=== PATIENT | female | born 1945 | race Hispanic/Latino ===

== ENCOUNTER 2018-08-16 11:52 | Inpatient (IN) | payer MEDICARE ==
[~2018-08-16] VITALS: Ht 157.5 cm; Wt 60.3 kg
--- NOTE | 2018-08-16 14:20 | Diagnostic Imaging Report ---
EXAMINATION: CT of the abdomen and pelvis without contrast. TECHNIQUE: Spiral CT images of the abdomen and pelvis were performed from the lung bases to the lesser trochanters. No intravenous contrast was given per referring physician request. Oral Gastrografin was administered. Coronal and sagittal reformatted images were obtained. COMPARISON: None. CLINICAL HISTORY:Right lower quadrant pain and fever x2 days DISCUSSION: ABSENCE OF INTRAVENOUS CONTRAST DECREASES SENSITIVITY FOR DETECTION OF FOCAL LESIONS AND VASCULAR PATHOLOGY. ABDOMEN/PELVIS: LOWER THORAX: Minimal groundglass opacity in the dependent lower lobes compatible with subsegmental atelectasis. HEPATOBILIARY:No focal hepatic lesion or intrahepatic biliary ductal dilatation. There are multiple radiopaque calculi in the dependent portion of the gallbladder, as well as within the gallbladder neck (series 2 image 29 and series 301 image 42) without pericholecystic inflammation. SPLEEN: No splenomegaly. PANCREAS: No focal masses or ductal dilatation. ADRENALS: No adrenal nodules. KIDNEYS/URETERS: No hydronephrosis, stones, or solid mass lesions. PELVIC ORGANS/BLADDER: Evaluation is limited due to beam hardening artifact from right femoral surgical hardware. The bladder is grossly unremarkable. The uterus is neutral in position with arcuate artery calcifications. No adnexal mass. PERITONEUM/RETROPERITONEUM: No ascites. No pneumoperitoneum. LYMPH NODES: No intra-abdominal,retroperitoneal, pelvic or inguinal lymphadenopathy. VESSELS: Limited evaluation without intravenous contrast. The abdominal aorta is nonaneurysmal. Atherosclerotic calcification of the abdominopelvic arterial system. GI TRACT: The large bowel shows no distention or wall thickening. Gas and fecal material is noted throughout. The appendix is normal. The stomach is collapsed with prominence of the rugal folds. No small bowel dilatation to suggest obstruction. BONES AND SOFT TISSUES: Surgical hardware in the proximal right femur. No osseous destructive lesions. 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 No focal soft tissue abnormalities. IMPRESSION: No acute intra-abdominal or pelvic CT abnormalities. Cholelithiasis without CT findings of acute cholecystitis. Atherosclerotic vascular disease. Signed by: Dr. Lauri Gallardo M.D. on 08/16/2018 2:17 PM
--- NOTE | 2018-08-16 14:51 | NUR ---
US TECH CALLED ETA 45 MINUTES
[2018-08-16] MEDS ORDERED: ONDANSETRON HCL INJ 2MG/ML 2ML 2 MG/ML VIAL IV STA (15:01)
[2018-08-16] MEDS ORDERED: MORPHINE SULFATE 2 MG/ML SYR 1ML IV STA (15:01)
--- NOTE | 2018-08-16 16:51 | Diagnostic Imaging Report ---
EXAM: US GALL BLADDER-HOPD DATE: 08/16/2018 12:00 AM INDICATION: Right upper quadrant pain COMPARISON: CT abdomen and pelvis same day TECHNIQUE: Transverse and longitudinal aquino scale and color doppler sonographic images of the upper abdomen were obtained. FINDINGS: LIVER 12.9 cm in the right midclavicular line. Normal echogenicity, normal contour, no masses. GALLBLADDER Multiple mobile shadowing echogenic calculi. No wall thickening or pericholecystic fluid. Negative sonographic Fields's sign. BILE DUCTS No intra nor extra-hepatic biliary dilation. Common bile duct is mildly prominent, measuring 0.9 cm PANCREAS: Visualized portions are normal. RIGHT KIDNEY: 9.7 cm Echogenicity: Normal Collecting System: No hydronephrosis Stones: None Cyst/Mass: None VESSELS: Aorta: Nonaneurysmal Inferior Vena Cava: Patent Main Portal Vein: 0.9 cm, normal size with hepatopetal flow. FREE FLUID: None IMPRESSION: Cholelithiasis without sonographic evidence of acute cholecystitis. Mild prominence of the common bile duct may be age-related. Correlate with serum bilirubin and consider outpatient MRCP for further evaluation if warranted. Signed by: Dr. Lauri Gallardo M.D. on 08/16/2018 4:48 PM
[2018-08-16] MEDS ORDERED: MORPHINE SULFATE 2 MG/ML SYR 1ML IV PRN (18:00)
[2018-08-16] MEDS ORDERED: ONDANSETRON HCL INJ 2MG/ML 2ML 2 MG/ML VIAL IV PRN (18:00)
--- OUTSIDE RECORDS SUMMARY | 2018-08-16 18:04 | XMS REPORT ---
Author Author [facility] Address Unknown Phone Unavailable Care Team Providers Care Employment Law Attorney Name Role Phone Manfred GREGORY Unavailable Unavailable Problems This patient has no known problems. Allergies, Adverse Reactions, Alerts This patient has no known allergies or adverse reactions. Medications This patient has no known medications. Results Test Description Test Time Test Comments Text Results Atomic Results Result Comments GALL BLADDER-HOPD 2018-08-16 16:44:00 [place] [address] Patient Name: JOSE LOPEZ MR #: [id number] : 1945 Age/Sex: 73/F Req #: [id number] Adm Physician: Ordered by: NEEMA GREGORY MD Report #: [id number] Location: [facility] Room/Bed: Procedure: [id number] [facility] G[facility] Exam Date: 08/16/18 Exam Time: 1550 REPORT STATUS: Signed EXAM: GALL BLADDER-HOPD DATE: 08/16/2018 12:00 AM INDICATION: Right upper quadrant pain COMPARISON: CT abdomen and pelvis same day TECHNIQUE: Transverse and longitudinal aquino scale and color doppler sonographic images of the upper abdomen were obtained. FINDINGS: LIVER 12.9 cm in the right midclavicular line. Normal echogenicity, normal contour, no masses. GALLBLADDER Multiple mobile shadowing echogenic c alculi. No wall thickening or pericholecystic fluid. Negative sonographic Fields's sign. BILE DUCTS No intra nor extra-hepatic biliary dilation. Common bile duct is mildly prominent, measuring 0.9 cm PANCREAS: Visualized portions are normal. RIGHT KIDNEY: 9.7 cm Echogenicity: Normal Collecting System: No hydronephrosis Stones: None Cyst/Mass: None VESSELS: Aorta: Nonaneurysmal Inferior Vena Cava: Patent Main Portal Vein: 0.9 cm, normal size with hepatopetal flow. FREE FLUID: None IMPRESSION: Cholelithiasis without sonographic evidence of acute cholecystitis. Mild prominence of the common bile duct may be age-related. Correlate with serum bilirubin and consider outpatient MRCP for further evaluation if warranted. Signed by: Dr. Keaton Carbajal M.D. on 08/16/2018 4:48 PM Dictated By: KEATON CARBAJAL MD 47 Transcribed By: RAPHAEL on 08/16/181647 COPY TO: NEEMA GREGORY MD CT ABDOMEN WITHOUT-HOPD 2018-08-16 14:07:00 [place] [address] Patient Name: JOSE LOPEZ MR #: [id number] : 1945 Age/Sex: 73/F Req #: [id number] Adm Physician: Ordered by: NEEMA GREGORY MD Report #: [id number] Location: [facility] Room/Bed: Procedure: [id number] HOPD/CT ABDOMEN WITHOUT-HOPD Exam Date: 08/16/18 Exam Time: 1340 REPORT STATUS: Signed EXAMINATION: CT of the abdomen and pelvis without contrast. TECHNIQUE: Spiral CT images of the abdomen and pelvis were performed from the lung bases to the lesser trochanters. No intravenous contrast was given per referring physician request. Oral Gastrografin was administered. Coronal and sagittal reformatted images were obtained. COMPARISON: None. CLINICAL HISTORY:Right lower quadrant pain and fever x2 days DISCUSSION: ABSENCE OF INTRAVENOUS CONTRAST DECREASES SENSITIVITY FOR DETECTION OF FOCAL LESIONS AND VASCULAR PATHOLOGY. ABDOMEN/PELVIS: LOWER THORAX: Minimal groundglass opacity in the dependent lower lobes compatible with subsegmental atelectasis. HEPATOBILIARY:No focal hepatic lesion or intrahepatic biliary ductal dilatation. There are multiple radiopaque calculi in the dependent portion of the gallbladder, as well as within the gallbladder neck (series 2 image 29 and series 301 image 42) without pericholecystic inflammation. SPLEEN: No splenomegaly. PANCREAS: No focal masses or ductal dilatation. ADRENALS: No adrenal nodules. KIDNEYS/URETERS: No hydronephrosis, stones, or solid mass lesions. PELVIC ORGANS/BLADDER: Evaluation is limited due to beam hardening artifact from right femoral surgical hardware. The bladder is grossly unremarkable. The uterus is neutral in position with arcuate artery calcifications. No adnexal mass. PERITONEUM/RETROPERITONEUM: No ascites. No pneumoperitoneum. LYMPH NODES: No intra-abdominal,retroperitoneal, pelvic or inguinal lymphadenopathy. VESSELS: Limited evaluation without intravenous contrast. The abdominal aorta is nonaneurysmal. Atherosclerotic calcification of the abdominopelvic arterial system. GI TRACT: The large bowel shows no distention or wall thickening. Gas and fecal material is noted throughout. The appendix is normal. The stomach is collapsed with prominence of the rugal folds. No small bowel dilatation to suggest obstruction. BONES AND SOFT TISSUES: Surgical hardware in the proximal right femur. No osseous destructive lesions. 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 No focal soft tissue abnormalities. IMPRESSION: No acute intra-abdominal or pelvic CT abnormalities. Cholelithiasis without CT findings of acute cholecystitis. Atherosclerotic vascular disease. Signed by: Dr. Keaton Carbajal M.D. on 08/16/2018 2:17 PM Dictated By: KEATON CARBAJAL MD [id number] Transcribed By: RAPHAEL on 08/16/18 1417 COPY TO: NEEMA GREGORY MD
--- NOTE | 2018-08-16 18:07 | NUR ---
[facility] CALLED ETA 45 MINUTES
[2018-08-16] MEDS: PIPER-TAZ 3.375 GM / NS 50ML IV SCH ×2 (18:27→22:00)
--- NOTE | 2018-08-16 18:33 | NUR ---
REPORT CALLED TO [facility] KUMAR ALL QUESTIONS ANSWERED
--- NOTE | 2018-08-16 19:20 | NUR ---
Patient arrived to unit per ems from [facility] with daughter at side. Transferred to bed. Oriented to room and environment. Instructed to call for assistance or on the onset of pain or SOB. Call light within reach.
[2018-08-16] MEDS ORDERED: GLYBURIDE5 MG PO (19:46)
[2018-08-16] MEDS ORDERED: METFORMIN HCL500 MG PO (19:46)
[2018-08-16] MEDS ORDERED: insulin SUBD (19:46)
[2018-08-16 19:47] VITALS: BP 134/60
[2018-08-16 20:00] VITALS: BP 134/60
--- NOTE | 2018-08-16 20:00 | NUR ---
Patient requesting water or ice chips. Informed patient that current order for NPO, will call MD to check. Verbalized understanding.
[2018-08-16 20:09] VITALS: BP 167/73
[2018-08-16 20:14] VITALS: BP 134/60
[2018-08-16] MEDS ORDERED: ACETAMINOPHEN 325 MG TAB PO PRN (20:30)
--- NOTE | 2018-08-16 20:30 | NUR ---
Daughter Chika to bring home medications for correct dosage on medications and type of insulin. Education provided on importance of correct list of home medications. Will bring list.
--- NOTE | 2018-08-16 20:33 | NUR ---
Spoke with Dr Herron via phone. Patient temp 101.4 orally, no order for tylenol. New order for Tylenol 650 mg po Q 6 hrs PRN temp or pain. Patient also requesting water or ice chips: keep patient NPO at this time.
[2018-08-16] MEDS: SODIUM CHLORIDE 0.9% 1000ML 1,000 ML IV SCH (20:59)
[2018-08-16 23:54] VITALS: BP 97/55
[2018-08-17] VITALS (8 sets, daily range): BP systolic 96–115; BP diastolic 47–57
[2018-08-17] MEDS ORDERED: MORPHINE SULFATE INJ 4 MG/ML INJ 1ML IV PRN ×2 (01:30→08:45)
[2018-08-17] MEDS: PIPER-TAZ 3.375 GM / NS 50ML IV SCH ×3 (01:34→17:30)
[2018-08-17] MEDS: SODIUM CHLORIDE 0.9% 1000ML 1,000 ML IV SCH ×4 (01:34→20:57)
[2018-08-17 05:26] LABS: BASOPHILS # (AUTO) 0.1 (0.0-0.1); BASOPHILS % 0.6 % (0.0-1.0); EOSINOPHILS # (AUTO) 0.3 (0.0-0.4); EOSINOPHILS % 2.3 % (0.0-6.0); HEMATOCRIT 27.1 % (34.2-44.1); HEMOGLOBIN 8.9 g/dL (12.0-16.0); LYMPHOCYTES # (AUTO) 1.2 (1.0-3.2); MEAN CORPUSCULAR HEMOGLOBIN 30.6 pg (28-32); MEAN CORPUSCULAR HGB CONC 32.8 g/dL (31-35); MEAN CORPUSCULAR VOLUME 93.1 fL (81-99); MONOCYTES # (AUTO) 1.2 (0.2-0.8); MONOCYTES % 9.6 % (4.4-11.3); NEUTROPHILS # (AUTO) 9.2 (2.1-6.9); PLATELET COUNT 202 x10e3/uL (140-360); RED BLOOD COUNT 2.91 x10e6/uL (3.6-5.1); RED CELL DISTRIBUTION WIDTH 12.7 % (11.7-14.4)
[2018-08-17 05:58] LABS: ALBUMIN 2.5 g/dL (3.5-5.0); ALBUMIN/GLOBULIN RATIO 0.8 (0.8-2.0); ANION GAP 11.1 mmol/L (8-16); CALCIUM 8.3 mg/dL (8.4-10.2); CREATININE, SERUM 1.47 mg/dL (0.57-1.11); POTASSIUM 4.1 mmol/L (3.5-5.1)
[2018-08-17] MEDS ORDERED: DEXTROSE 50% SYRINGE 50 ML IV PRN (08:45)
[2018-08-17] MEDS ORDERED: HYDRALAZINE HCL 20 MG/ML VIAL IV PRN (08:45)
[2018-08-17] MEDS ORDERED: ACETAMINOPHEN 1000 MG/100 ML IV PRN (08:45)
--- NOTE | 2018-08-17 10:33 | NUR ---
Received report. Patient is being transferred to room 202
--- NOTE | 2018-08-17 10:37 | NUR ---
patient back from MRI MRCP, Stable, transferred to [facility], not in any distress
--- NOTE | 2018-08-17 10:38 | NUR ---
Patient arrived to the floor via wheelchair. She is being transferred from room 175. She is awake alert and oriented x3. Not in any distress. She has several family members present in the room. Swazi speaking only. Salt Washer was used to orient patient and family to the room and NPO status after midnight and procedure tomorrow. Patient and family verbalized understanding. They deny needing anything at this time, call light in reach
--- NOTE | 2018-08-17 10:41 | NUR ---
UNABLE TO SPEAK WITH PT, THE PT AND HER ASKED FOR ME TO CALL DAUGHTER [phone]
[2018-08-17] MEDS: INSULIN LISPRO 100 UNIT/1 ML 3ML VIAL SQ SCH ×3 (12:25→21:00)
--- NOTE | 2018-08-17 13:25 | Consultation ---
DATE OF CONSULTATION: 08/17/2018 ADDITIONAL REFERRING PHYSICIAN: Dr. Jorgito Marte. HISTORY OF PRESENT ILLNESS: The patient is a 73-year-old female presenting with complaints of right upper quadrant abdominal pain. Says the pain started about three days ago, but was somewhat less now. She says the pain radiated to her back. She had no associated nausea or vomiting. She had some diarrhea and also some fever. Evaluation in the emergency room revealed gallstones, but no inflammation around the gallbladder on CT or ultrasound. The patient says she has had similar symptoms previously. There are no symptoms of jaundice. Evaluation in the emergency room did reveal gallstones. PAST MEDICAL HISTORY: Significant for diabetes. PAST SURGICAL HISTORY: The only previous surgery is foot surgery. ALLERGIES: SHE HAS NO KNOWN ALLERGIES. MEDICATIONS: At home; glyburide, metformin, and insulin. FAMILY HISTORY: Noncontributory. SOCIAL HISTORY: The patient does not smoke cigarettes. Does not drink alcohol. REVIEW OF SYSTEMS: As stated above, otherwise was negative. PHYSICAL EXAMINATION: GENERAL: The patient is awake, alert, in no distress. VITAL SIGNS: Revealed temperature 101.4 last evening. She is afebrile now. Heart rate is normal. Blood pressure is normal. HEENT: There was no scleral icterus. NECK: No masses. LUNGS: Equal breath sounds, clear bilaterally. CARDIAC: Regular rate and rhythm with no murmur. ABDOMEN: Tender in the right upper quadrant. There was no mass. There was no organomegaly. There were no signs of peritonitis. EXTREMITIES: Have no edema. NEUROLOGIC: Grossly intact. LABS: White blood cell count is 12,000, hemoglobin 8.9, and hematocrit 27. Chemistries revealed mildly elevated BUN and creatinine of 34 and 1.47. The bilirubin was 1.1. Other liver function tests were normal. ASSESSMENT: A 73-year-old female with right upper quadrant abdominal pain radiating to her back with fever and findings of gallstones on imaging studies, likely this is due to cholecystitis. She is to be evaluated further with MRCP, which will likely benefit from cholecystectomy. This was explained to the patient and the proposed surgery was explained to the patient. Thank you for asking me to see Ms. Chanel. MD DREW Rowell/BEKA /[id number]
--- NOTE | 2018-08-17 14:23 | Diagnostic Imaging Report ---
MRCP CPT code: 72901 History: Abdominal pain, right upper quadrant pain Comparison: None. Technique: Multiplanar, multisequence images of the abdomen were obtained per MRCP protocol. 3D volume rendered reformation images of the biliary tree were performed. No intravenous gadolinium was administered. Findings: Multiple images are motion degraded. Biliary tree: The intrahepatic ducts are distended, particularly in the left lobe without beading or narrowing. The proximal most portion of the right common hepatic duct is mildly distended. The common hepatic duct measures approximately 6 mm in diameter. The cystic duct is poorly visualized. The proximal common bile duct measures 10 mm. The mid common bile duct measures 8 mm. The distal common bile duct measures 7 mm with squaring of the shoulders at the ampulla. There are no intraluminal filling defects. Pancreas duct: The proximal pancreas duct in the head measures 4 mm. The pancreas duct in the body and tail are not dilated. Gallbladder: Present and is very well-distended. A dependently layering gallstone measures 7 mm. No gallbladder wall thickening. There is a trace amount of nonspecific pericholecystic fluid. No edema of the adjacent hepatic parenchyma. Liver: No discrete mass. Decreased signal on opposed phase sequence suggestive of steatosis. Spleen: Normal size and signal. No mass. Pancreas: Normal T2 signal. No mass. Kidneys: No hydronephrosis. No discrete mass. Adrenal glands: No mass Lymph nodes: No lymphadenopathy. There is focal increased T2 signal to the left of the infrarenal aorta measuring 15 x 7 mm. This may be a part of the parasympathetic ganglion. No defined lymph nodes. Bowel: Stomach is normal. The visualized portions of the small bowel demonstrate a diverticulum in the third portion of the duodenum. Remainder of the small bowel is normal in diameter with normal wall thickness. The visualized portions of the large bowel are normal in diameter with normal wall thickness. Vasculature: Great vessels are patent and normal in morphology. Peritoneum/retroperitoneum: Trace amount of perihepatic and perinephric fluid. Lung bases: Small pleural effusions and bibasilar atelectasis. Visualized portion of the mediastinum are unremarkable. Bones: Normal marrow signal. No focal osseous lesions. IMPRESSION: 1. Diffuse distention of the common bile duct, proximal intrahepatic ducts, and proximal pancreas duct without evidence of intraluminal filling defect, beading, or narrowing. No evidence of choledocholithiasis. Ampullary stenosis cannot be excluded. No obstructing masses in the pancreas head. 2. Well distended gallbladder containing subcentimeter gallstone. Gallbladder distention may be from fasting state. HIDA scan in nuclear medicine can assess gallbladder function. 3. Mild steatosis. 4. Trace pleural effusions and small amount of abdominal ascites. Thank you for your referral. Signed by: Dr. Rossi Pinon MD on 08/17/2018 2:20 PM
--- NOTE | 2018-08-17 16:00 | History and Physical ---
CHIEF COMPLAINT: Abdominal pain, right upper quadrant for x2 days. HISTORY OF PRESENT ILLNESS: The patient is a 73-year-old female with right upper quadrant abdominal pain associated with nausea and vomiting. This has been going on for the past 2-3 days. The patient came to the hospital. Signs and symptoms are consistent with acute cholecystitis. Patient does have fever of 101-102 Fahrenheit. The patient is stable at this time pending for surgical intervention. PAST MEDICAL HISTORY: Diabetes mellitus type 2, chronic kidney disease. PAST SURGICAL HISTORY: Foot surgery. SOCIAL HISTORY: The patient does not smoke or use alcohol, no recreational drugs. ALLERGIES: NO KNOWN ALLERGIES. HOME MEDICATION: Glyburide and metformin. REVIEW OF SYSTEMS: Abdominal pain, nausea and vomiting. PHYSICAL EXAMINATION: VITAL SIGNS: Temperature is 101.4, blood pressure 142/51, pulse rate is 109, respirations 18. GENERAL: The patient is not in acute distress. She is in pain. HEENT: Normocephalic, atraumatic. Anicteric. NECK: Supple grossly. PULMONARY: Diminished breath sounds bilaterally. CARDIOVASCULAR: S1 and S2. Regular rate and rhythm. ABDOMEN: Tenderness with some guarding in right upper quadrant and right mid quadrant. EXTREMITIES: No cyanosis or edema. NEUROLOGIC: No gross focal deficit. LABORATORY DATA: WBC is 11.9, hemoglobin 8.9, hematocrit 27.1, and platelets 202. Chemistry; sodium 133, potassium 4.1, chloride 102, bicarb 24, BUN is 34, creatinine 1.47, glucose 177. IMAGING: Abdominal CT scan showed consistent with cholelithiasis. IMPRESSION: Acute cholecystitis associated with pain, fever, and leukocytosis. PLAN: Dr. Knowles will take the patient to have her gallbladder taken out. In the meantime, continue with IV antibiotics. Tylenol. Check blood culture. MD BETTY Hoyos/BEKA /[id number]
--- NOTE | 2018-08-17 19:10 | NUR ---
RECEIVED PATIENT. PATIENT IS AAOX3. RESP EVEN AND UNLABORED. NO ACUTE DISTRESS NOTED. PATIENT DENIES OF ANY PAIN OR DISCOMFORT AT THIS TIME. IV FLUID INFUSING. FAMILY AT BED SIDE. BED LOW/LOCKED. CONTINUE TO MONITOR CLOSELY
[2018-08-18] VITALS (7 sets, daily range): BP systolic 109–145; BP diastolic 54–65
--- NOTE | 2018-08-18 03:20 | NUR ---
LEFT HAND IV INFILTRATED. D/C IV. START NEW IV TO LEFT AC 22G. PATIENT TOLERATED WELL
[2018-08-18] MEDS: PIPER-TAZ 3.375 GM / NS 50ML IV SCH ×3 (03:30→19:14)
[2018-08-18 05:45] LABS: BASOPHILS # (AUTO) 0.1 (0.0-0.1); BASOPHILS % 0.5 % (0.0-1.0); EOSINOPHILS # (AUTO) 0.5 (0.0-0.4); EOSINOPHILS % 5.8 % (0.0-6.0); HEMATOCRIT 26.9 % (34.2-44.1); HEMOGLOBIN 8.6 g/dL (12.0-16.0); LYMPHOCYTES # (AUTO) 1.2 (1.0-3.2); LYMPHOCYTES % 12.9 % (18.0-39.1); MEAN CORPUSCULAR HEMOGLOBIN 30.7 pg (28-32); MEAN CORPUSCULAR VOLUME 96.1 fL (81-99); MONOCYTES # (AUTO) 0.9 (0.2-0.8); MONOCYTES % 9.5 % (4.4-11.3); NEUTROPHILS # (AUTO) 6.5 (2.1-6.9); NEUTROPHILS % 70.9 % (38.7-80.0); PLATELET COUNT 194 x10e3/uL (140-360); RED CELL DISTRIBUTION WIDTH 12.9 % (11.7-14.4)
[2018-08-18] MEDS: SODIUM CHLORIDE 0.9% 1000ML 1,000 ML IV SCH ×3 (06:13→22:27)
[2018-08-18 06:15] LABS: ALBUMIN 2.3 g/dL (3.5-5.0); ALBUMIN/GLOBULIN RATIO 0.8 (0.8-2.0); CALCIUM 8.2 mg/dL (8.4-10.2); CREATININE, SERUM 1.07 mg/dL (0.57-1.11)
[2018-08-18] MEDS: INSULIN LISPRO 100 UNIT/1 ML 3ML VIAL SQ SCH ×4 (07:30→21:00)
--- NOTE | 2018-08-18 08:29 | NUR ---
Received patient this morning and in bed, no resp distress, rounds by attending and consult to Dr. Robles and called at this time. Call to Dr. Knowles to clarify if patient will need ERCP per Dr. Herron prior to surgery. Will monitor.
[2018-08-18] MEDS ORDERED: ACETAMINOPHEN 1000 MG/100 ML IV PRN ×2 (08:30→14:00)
--- NOTE | 2018-08-18 08:49 | NUR ---
Call back from Dr. Knowles and states does not think finding on MRCP is significant for ERCP but he will talk with Dr. Garcia still plans to proceed with surgery today
[2018-08-18] MEDS ORDERED: BUPIVACAINE HCL 0.5% INJ 30 ML VIAL INJ ONE (12:29)
[2018-08-18] MEDS ORDERED: IOPAMIDOL 610MG/1ML 300 MG/ML VIAL IV ONE (12:29)
[2018-08-18] MEDS ORDERED: HYDROCODONE/APAP 5MG-325MG TAB PO PRN ×2 (13:30→13:45)
[2018-08-18] MEDS ORDERED: ONDANSETRON HCL INJ 2MG/ML 2ML 2 MG/ML VIAL IV PRN (13:30)
[2018-08-18] MEDS ORDERED: MORPHINE SULFATE INJ 4 MG/ML INJ 1ML IV PRN (13:45)
[2018-08-18] MEDS ORDERED: FENTANYL CITRATE/PF 100MCG/2 ML INJ ONE ×2 (13:56→18:24)
--- NOTE | 2018-08-18 14:30 | NUR ---
Patient returned from OR, S/P Lap Yuli, pains well managed, on ADA diet at this time and call light within reach, VSS and will monitor.
[2018-08-18] MEDS ORDERED: KETOROLAC TROMETHAMINE 30 MG/ML VIAL ONE (17:59)
[2018-08-18] MEDS ORDERED: ROCURONIUM BROMIDE 10 MG/ML 5ML VIAL ONE (17:59)
[2018-08-18] MEDS ORDERED: NEOSTIGMINE 5 MG/5ML SYR ONE (17:59)
[2018-08-18] MEDS ORDERED: LIDOCAINE HCL 2% LOCAL INJ 5 ML SDV VIAL INJ ONE (17:59)
[2018-08-18] MEDS ORDERED: SEVOFLURANE INHAL SOLN 250 ML PEN BTL ONE (17:59)
[2018-08-18] MEDS ORDERED: PROPOFOL IV EMULSION 10 MG/ML 20 ML VIAL ONE (17:59)
[2018-08-18] MEDS ORDERED: ATROPINE SULFATE 1 MG/ML VIAL ONE (17:59)
[2018-08-18] MEDS ORDERED: DEXAMETHASONE SOD PHOS INJ 4 MG/ML VIAL ONE (17:59)
[2018-08-18] MEDS ORDERED: ONDANSETRON HCL INJ 2MG/ML 2ML 2 MG/ML VIAL ONE (17:59)
--- NOTE | 2018-08-18 18:51 | NUR ---
Patient tolerated dinner , no N/V
--- NOTE | 2018-08-18 19:38 | Operative Report ---
DATE OF PROCEDURE: 08/18/2018 SURGEON: Lauri Knowles MD PREOPERATIVE DIAGNOSES: Acute cholecystitis, cholelithiasis. POSTOPERATIVE DIAGNOSES: Acute cholecystitis, cholelithiasis. PROCEDURES: Diagnostic laparoscopy, laparoscopic cholecystectomy, attempted cholangiogram. PAIRING MACHINE OPERATOR: None. ANESTHESIA: General. INDICATIONS AND FINDINGS: The patient is a 73-year-old female, admitted to the hospital with complaints of fever and right upper quadrant abdominal pain. Workup revealed gallstones. At surgery, the patient's gallbladder was edematous. It was having at least one stone. Cystic duct was also edematous. An attempted cholangiogram was made, but cholangiocatheter would not pass, so there was no definite stone within the cystic duct. Common bile duct was well seen and this was about 8 mm in diameter. Liver appeared normal. There were some adhesions involving the omentum and lower abdomen otherwise appeared normal. TECHNIQUE: After adequate general endotracheal anesthesia with the patient in supine position, the abdomen was prepped and draped in sterile fashion with ChloraPrep solution. Skin in the umbilicus was infiltrated with 0.5% Marcaine. Incision made in the umbilicus, abdominal wall was elevated, and Veress needle was introduced. Pneumoperitoneum was then created. A 10 mm trocar and cannula was then passed through the umbilical wound. Laparoscopic camera was introduced. Initial laparoscopy revealed some adhesions involving the omentum. Gallbladder was noted to be distended and somewhat edematous. Liver, stomach, and lower abdomen appeared normal. A 10 mm trocar and cannula was placed in the epigastrium, two 5 mm trocars and cannulas were placed in right upper quadrant; these were placed under direct vision. Fundus of the gallbladder was grasped and retracted superiorly. There was some adhesions over the neck of the gallbladder involving the omentum which were lysed. Neck of the gallbladder was grasped and retracted laterally. Peritoneum over the neck of the gallbladder was incised. The gallbladder cystic duct junction was dissected free. Cystic artery was also dissected free. Cystic artery was divided between hemoclips close to the gallbladder. A clip was then placed on the cystic duct close to the gallbladder. An incision was made in the cystic duct just below this clip and percutaneous entry with cholangiocatheter was placed in the cystic duct, however, would not pass. Cystic duct was milked back towards the opening in the cystic duct, but there was no stone. Several attempts were made to pass the cholangiocatheter, but it would not pass. There was some edema there, so the edema may have been preventing the passage of the catheter. Attempt to do the cholangiogram was then aborted. The cystic duct was then divided between hemoclips with three clips being left on the common bile duct side. The cystic duct was divided. There was a posterior branch of cystic artery, which was divided between hemoclips. The gallbladder was then dissected free from the liver using scissors and electrocautery. Once it was entirely free, it was placed into an Endopouch and brought out through the epigastric cannula, at least one stone palpable. Gallbladder bed was inspected for hemostasis which was seen to be adequate. It was irrigated with saline, all fluid aspirated, inspected once again for hemostasis which was seen to be adequate. Instruments and cannulas were removed. Pneumoperitoneum was evacuated. Wounds were then closed. Fascia in the umbilical and epigastric wound closed with 0 Vicryl. Skin to all wounds closed with jerome. Sterile dressings applied to each wound. The patient tolerated the procedure well. Estimated blood loss was 10 mL. There were no complications. All counts were correct. The patient was taken to the recovery room in satisfactory condition. MD DREW Rowell/BEKA /[id number]
[2018-08-19] VITALS (7 sets, daily range): BP systolic 103–134; BP diastolic 51–60
--- NOTE | 2018-08-19 00:49 | Consultation ---
DATE OF CONSULTATION: 08/18/2018 HISTORY OF PRESENT ILLNESS: This is a 73-year-old lady, who presented to the hospital because of abdominal pain. This mainly is in the right upper quadrant area, along with some nausea and vomiting. The patient also has some fever. Her workup so far reveal that she has anemia with a hemoglobin around 8.9 on admission and also gallstones on the CAT scan. The ultrasound shows marked common duct dilatations. However, the MRCP was negative for filling defect, except there is mild steatosis. She underwent cholecystectomy earlier today and currently she is doing well. PAST MEDICAL HISTORY: Her medical problem is significant for history of diabetes, history of chronic renal disease, status post foot surgery. ALLERGIES: NONE. HOME MEDICATIONS: Include glyburide as well as metformin. SOCIAL HISTORY: No smoking or alcohol use. FAMILY HISTORY: Noncontributory. REVIEW OF SYSTEMS: Denies any chest pain or shortness of breath. Denies any dysphagia or odynophagia. Denies any dysuria, hematuria, or any kind of syncopal episode. PHYSICAL EXAMINATION: GENERAL: The patient is awake, alert, appears to be stable, not in acute distress at this point. VITAL SIGNS: Afebrile currently with stable vital signs. HEAD, EYES, EARS, NOSE AND THROAT: Normocephalic, atraumatic. Sclerae anicteric. NECK: Supple. HEART: Regular. ABDOMEN: Soft. There is mild epigastric tenderness. There is no rebound or mass. EXTREMITIES: Demonstrates no clubbing or cyanosis. LABORATORY VALUES: As of today, liver enzymes appear to be normal. BUN and creatinine are normal. Hemoglobin of 8.6, hematocrit 26.9. CAT scan and ultrasound as mentioned before. IMPRESSION: 1. Abdominal pain, nausea, and vomiting. The patient goes on with likely possibly cholecystitis, status post cholecystectomy. 2. Anemia. Etiology is unclear. There is no evidence of anemia at this point. 3. Diabetes. RECOMMENDATION: Continue postop care at this point, I would like to obtain iron study and follow labs as well as clinically. MD HILDA Alves/BEKA /[id number] cc: Rivera Herron MD
[2018-08-19] MEDS: PIPER-TAZ 3.375 GM / NS 50ML IV SCH ×3 (02:43→18:32)
[2018-08-19 05:33] LABS: BASOPHILS % 0.1 % (0.0-1.0); EOSINOPHILS % 0.1 % (0.0-6.0); HEMOGLOBIN 8.4 g/dL (12.0-16.0); LYMPHOCYTES # (AUTO) 0.7 (1.0-3.2); LYMPHOCYTES % 7.1 % (18.0-39.1); MEAN CORPUSCULAR HEMOGLOBIN 30.5 pg (28-32); MEAN CORPUSCULAR HGB CONC 32.3 g/dL (31-35); MEAN CORPUSCULAR VOLUME 94.5 fL (81-99); MONOCYTES # (AUTO) 0.7 (0.2-0.8); MONOCYTES % 7.4 % (4.4-11.3); NEUTROPHILS # (AUTO) 8.5 (2.1-6.9); NEUTROPHILS % 84.8 % (38.7-80.0); PLATELET COUNT 225 x10e3/uL (140-360); RED BLOOD COUNT 2.75 x10e6/uL (3.6-5.1)
[2018-08-19 06:16] LABS: FERRITIN 223.72 ng/mL (4.63-204.00)
[2018-08-19 06:30] LABS: FOLATE 14.4 ng/mL (7.0-15.4)
[2018-08-19 07:29] LABS: ALBUMIN 2.1 g/dL (3.5-5.0); ALBUMIN/GLOBULIN RATIO 0.7 (0.8-2.0); ANION GAP 16.3 mmol/L (8-16); CALCIUM 8.2 mg/dL (8.4-10.2); CREATININE, SERUM 1.42 mg/dL (0.57-1.11); POTASSIUM 4.3 mmol/L (3.5-5.1)
[2018-08-19] MEDS: INSULIN LISPRO 100 UNIT/1 ML 3ML VIAL SQ SCH ×4 (07:30→20:34)
[2018-08-19] MEDS: SODIUM CHLORIDE 0.9% 1000ML 1,000 ML IV SCH ×2 (11:39→19:26)
--- NOTE | 2018-08-19 11:58 | NUR ---
Call to Dr. Garcia's office and to get clearance for discharge, Dr. Knowles did rounds this morning and cleared patient for discharge.
--- NOTE | 2018-08-19 15:48 | NUR ---
Spoke with Dr. Reaves and will want to see patient first before discharge and that patient will most likely discharge tomorrow.
--- NOTE | 2018-08-19 17:21 | NUR ---
Report given to Kevan farrar at [facility]. Medications reconciled by MD and patient is ok for discharge per all disciplines, will transition to PO abx. Call ing ambulance at this time
[2018-08-20 00:09] VITALS: BP 114/55
[2018-08-20] MEDS: SODIUM CHLORIDE 0.9% 1000ML 1,000 ML IV SCH (02:09)
[2018-08-20] MEDS: PIPER-TAZ 3.375 GM / NS 50ML IV SCH ×2 (02:09→09:31)
[2018-08-20 04:08] VITALS: BP 156/65
--- NOTE | 2018-08-20 07:02 | NUR ---
Received patient mid fowlers position, side rails upx2, call light within reach, at bedside. AAOX3 to time, person, place, zimbabwean speaking. Respirations even and unlabored. O2 1L NC. Denies sob. O2 removed. Will continue to monitor.
[2018-08-20] MEDS: INSULIN LISPRO 100 UNIT/1 ML 3ML VIAL SQ SCH ×2 (07:30→11:20)
--- NOTE | 2018-08-20 07:30 | NUR ---
SPO2 93% on room air. Denies sob. Will continue to monitor.
[2018-08-20 07:32] VITALS: BP 152/69
[2018-08-20 08:00] VITALS: BP 152/69
--- NOTE | 2018-08-20 09:00 | NUR ---
SPO2 94% on room air. Will continue to monitor.
[2018-08-20] MEDS ORDERED: POTASSIUM CHLORIDE 10MEQ EA PO NR (10:45)
[2018-08-20] MEDS ORDERED: INSULIN GLARGINE 100 UNITS/ML VIAL SQ NR ×2 (10:45→11:00)
[2018-08-20] MEDS ORDERED: FUROSEMIDE INJ 10 MG/ML 4 ML VIAL IV NR (10:45)
[2018-08-20] MEDS ORDERED: LEVAQUIN500 MG PO (10:48)
[2018-08-20] MEDS ORDERED: TYLENOL WITH C1 EACH PO (10:48)
[2018-08-20] MEDS ORDERED: NIFEDIPINE10 MG PO (10:48)
[2018-08-20] MEDS ORDERED: ZOFRAN4 MG SL (10:49)
[2018-08-20] MEDS ORDERED: GLUCOTROL5 MG PO (10:50)
[2018-08-20] MEDS ORDERED: TESSALON PERLE100 MG PO (10:51)
--- NOTE | 2018-08-20 11:00 | NUR ---
aware of abnormal lung sounds. See orders
[2018-08-20 12:00] VITALS: BP 168/72
--- NOTE | 2018-08-20 12:05 | NUR ---
Visit made by the Spiritual Care Department Pastoral Visitor, Caleb Galvez. PV provided pastoral presence, hospitality, and supportive listening. Pastoral Visitor informed pt/family of the scope of [facility] and availability. NEY FRANCOIS Eap Specialist Spiritual Care Department O: [phone] Pager: [phone] ([phone] number calling from)
--- NOTE | 2018-08-20 12:25 | NUR ---
Left AC IV discontinued. No signs of infiltration noted. 2x2 gauze and tape placed. AAOx3 to time, person, place. Respirations even and unlabored. Taken via wheelchair to personal car. Discharge instructions, rx, and all personal belongings taken with patient.
--- NOTE | 2018-08-20 16:27 | NUR ---
AUNG RECEIVED CALL FROM ROBERT IN SURGERY REGARDING PATIENT BEING RELEASED WITH NO HOME HEALTH. AUNG INFORMED ROBERT THAT NO HOME HEALTH ORDER WAS WRITTEN PRIOR TO DISCHARGE. CM CALLED PATIENT DAUGHTER/ POA ALICIA SOLOMON @ [phone]. CM LEFT MESSAGE WITH ALICIA LOPEZ REGARDING HOME HEALTH CONCERNS. PATIENT DAUGHTER INFORMED THAT NO HOME HEALTH ORDER WAS PLACED PRIOR TO DISCHARGE SO WE ARE UNABLE TO SET UP HOME HEALTH SERVICES. PATIENT DAUGHTER ENCOURAGED TO FOLLOW UP WITH PRIMARY CARE PHYSICIAN OR UROLOGIST TO WRITE ORDER AND THEIR OFFICE IS ABLE TO SET UP HOME HEALTH FOR [facility].
--- NOTE | 2018-08-21 09:07 | Discharge Summary ---
CONSULTANTS: 1. Dr. Lauri Knowles. 2. Dr. Dipak Garcia. PRIMARY CARE PHYSICIAN: Ernie Marte MD FINAL DIAGNOSES: 1. Acute cholecystitis associated with abdominal pain, fever, nausea, and vomiting. 2. Status post laparoscopic cholecystectomy procedure done on August 18, 2018. SUMMARY: The patient is a 73-year-old female, who came to the hospital with acute cholecystitis. The patient was stable. She had multiple workup done, found to be acute cholecystitis. The patient did have a fever of 101.4. On admission, her WBC was 11.9. The patient is stable. Multiple imaging including MRCP, abdominal CT, and gallbladder ultrasound. The patient has no sign of obstructive stone. The patient underwent laparoscopic cholecystectomy. The patient is doing much better. She has tolerated all her diet. The patient will go home today. Follow up as an outpatient. She will be discharged home with blood pressure medication, nifedipine XL 30 mg once a day, Levaquin 500 mg daily for seven days, Tylenol No. 3 p.r.n. for pain, Zofran ODT sublingual p.r.n. for nausea and vomiting, Tessalon Perles 100 mg q.6 p.r.n. for cough. The patient instructed to follow up with Dr. Ernie Marte next week and Dr. Lauri Knowles next week. For her diabetes, she may need adjustment of her medication. We will discontinue the metformin due to her chronic kidney failure and start the patient on Glucotrol XL 5 mg daily. The patient is otherwise stable, discharged home. Follow up as an outpatient with her family physician. MD BETTY Hoyos/MODL /[id number]
--- NOTE | 2018-08-23 08:40 | Discharge Summary ---
PRIMARY CARE PHYSICIAN: Estuardo. CONSULTANTS: Dr. Dipak Garcia. FINAL DIAGNOSES: 1. Acute cholecystitis, status post laparoscopic cholecystectomy. 2. Dehydration, resolved. 3. Intractable nausea and vomiting, resolved. 4. Leukocytosis, resolved. SUMMARY: The patient is a DICTATION ENDS HERE MD BETTY Hoyos/BEKA /[id number]
== END 2018-08-20 12:25 | disposition home or self-care (01) | DRG 413 ==
LOC: FSED 11:52 → ERHOLD 17:53 → IMCU 19:15 → OBSVTOIN 08-17 08:35 → MED/SURG2 08-17 10:51
PROVIDERS: ADMIT Internal Medicine; ATTEND Internal Medicine
PROC: 0FJB0ZZ Inspection of Hepatobiliary Duct, Open Approach (ICD-10-PCS; 2018-08-18)
PROC: 0FT44ZZ Resection of Gallbladder, Percutaneous Endoscopic Approach (ICD-10-PCS; principal; 2018-08-18 12:35)
DX: K80.01 Calculus of gallbladder with acute cholecystitis with obstruction (principal); E86.0 Dehydration; K76.0 Fatty (change of) liver, not elsewhere classified; K82.8 Other specified diseases of gallbladder; D64.9 Anemia, unspecified; E11.9 Type 2 diabetes mellitus without complications; Z79.4 Long term (current) use of insulin
CPT/HCPCS: 36415; 74150; 74181; 76705; 80048; 80053; 80076; 81003; 82607; 82728; 82746; 82948; 83540; 84466; 85025; 88304; 99284; G0378; J0461; J1100; J1885; J1940; J2001; J2270; J2405; J2543; J7030

== ENCOUNTER 2021-05-10 18:58 | Inpatient (IN) | payer MEDICARE ==
[~2021-05-10] VITALS: Ht 152.4 cm; Wt 52.2 kg
[~2021-05-10 18:58] MED LIST: CEPHALEXIN500 MG PO; GLUCOTROL5 MG PO; GLYBURIDE5 MG PO; LEVAQUIN500 MG PO; METFORMIN HCL500 MG PO; NIFEDIPINE10 MG PO; ONDANSETRON ODT4 MG PO; TESSALON PERLE100 MG PO; TYLENOL WITH C1 EACH PO; ZOFRAN4 MG SL; insulin SUBD
[2021-05-10] MEDS ORDERED: PIPERACILLIN/TAZOBACTAM 3.375 GM in SODIUM CHLORIDE 0.9% 50ML 50 ML IV ONE (20:00)
[2021-05-10] MEDS ORDERED: Vancomycin IV 1 GM in SODIUM CHLORIDE 0.9% 250ML 250 ML IV ONE (20:00)
[2021-05-10 20:11] LABS: BASOPHILS % 0.4 % (0.0-1.0); EOSINOPHILS # (AUTO) 0.4 (0.0-0.4); EOSINOPHILS % 4.3 % (0.0-6.0); HEMATOCRIT 35.7 % (34.2-44.1); HEMOGLOBIN 11.2 g/dL (12.0-16.0); LYMPHOCYTES # (AUTO) 1.2 (1.0-3.2); LYMPHOCYTES % 13.1 % (18.0-39.1); MEAN CORPUSCULAR HEMOGLOBIN 30.5 pg (28-32); MEAN CORPUSCULAR HGB CONC 31.4 g/dL (31-35); MEAN CORPUSCULAR VOLUME 97.3 fL (81-99); MONOCYTES # (AUTO) 0.7 (0.2-0.8); MONOCYTES % 7.4 % (4.4-11.3); NEUTROPHILS # (AUTO) 6.7 (2.1-6.9); NEUTROPHILS % 74.5 % (38.7-80.0); PLATELET COUNT 224 x10e3/uL (140-360); RED BLOOD COUNT 3.67 x10e6/uL (3.6-5.1); RED CELL DISTRIBUTION WIDTH 12.6 % (11.7-14.4)
[2021-05-10 20:29] LABS: ALBUMIN 3.7 g/dL (3.5-5.0); ALBUMIN/GLOBULIN RATIO 0.9 (0.8-2.0); ANION GAP 16.8 mmol/L (8-16); CALCIUM 9.7 mg/dL (8.4-10.2); CREATININE, SERUM 1.28 mg/dL (0.57-1.11); POTASSIUM 4.8 mmol/L (3.5-5.1)
[2021-05-10] MEDS ORDERED: SODIUM CHLORIDE FLUSH 10 ML SYR INJ PRN (23:15)
[2021-05-10] MEDS: Vancomycin IV 1 GM in SODIUM CHLORIDE 0.9% 250ML 250 ML IV SCH (23:15)
[2021-05-10] MEDS ORDERED: DEXTROSE 50% SYRINGE 50 ML IV PRN (23:30)
[2021-05-11] VITALS (10 sets, daily range): BP systolic 92–146; BP diastolic 34–61
[2021-05-11] MEDS ORDERED: ASPIRIN81 MG PO (01:55)
[2021-05-11] MEDS ORDERED: CLOPIDOGREL75 MG PO (01:55)
[2021-05-11] MEDS ORDERED: GLIPIZIDE5 MG PO (01:55)
[2021-05-11] MEDS ORDERED: CRESTOR10 MG PO (01:55)
[2021-05-11] MEDS ORDERED: ALENDRONATE SOD70 MG PO (01:55)
[2021-05-11] MEDS ORDERED: METFORMIN HCL500 M1 PO (02:01)
[2021-05-11] MEDS: PIPERACILLIN/TAZOBACTAM 3.375 GM in SODIUM CHLORIDE 0.9% 50ML 50 ML IV SCH ×3 (06:05→22:36)
[2021-05-11] MEDS: INSULIN REGULAR, HUMAN 100 UNIT/1 ML SQ SCH ×4 (08:00→20:17)
[2021-05-11 10:35] LABS: BASOPHILS % 0.5 % (0.0-1.0); EOSINOPHILS # (AUTO) 0.4 (0.0-0.4); EOSINOPHILS % 4.5 % (0.0-6.0); HEMATOCRIT 28.9 % (34.2-44.1); HEMOGLOBIN 9.3 g/dL (12.0-16.0); LYMPHOCYTES # (AUTO) 1.1 (1.0-3.2); LYMPHOCYTES % 12.2 % (18.0-39.1); MEAN CORPUSCULAR HEMOGLOBIN 30.8 pg (28-32); MEAN CORPUSCULAR HGB CONC 32.2 g/dL (31-35); MEAN CORPUSCULAR VOLUME 95.7 fL (81-99); MONOCYTES # (AUTO) 0.7 (0.2-0.8); MONOCYTES % 7.6 % (4.4-11.3); NEUTROPHILS # (AUTO) 6.5 (2.1-6.9); NEUTROPHILS % 74.7 % (38.7-80.0); PLATELET COUNT 194 x10e3/uL (140-360); RED BLOOD COUNT 3.02 x10e6/uL (3.6-5.1); RED CELL DISTRIBUTION WIDTH 12.8 % (11.7-14.4)
[2021-05-11 11:03] LABS: ALBUMIN 2.7 g/dL (3.5-5.0); ALBUMIN/GLOBULIN RATIO 0.9 (0.8-2.0); ANION GAP 13.2 mmol/L (8-16); CALCIUM 8.4 mg/dL (8.4-10.2); CREATININE, SERUM 1.34 mg/dL (0.57-1.11); POTASSIUM 4.2 mmol/L (3.5-5.1)
[2021-05-11] MEDS: Vancomycin IV 1 GM in SODIUM CHLORIDE 0.9% 250ML 250 ML IV SCH ×2 (12:33→23:36)
[2021-05-11] MEDS ORDERED: SODIUM CHLORIDE 0.9% 250ML 250 ML ONE (12:51)
[2021-05-11] MEDS ORDERED: ENOXAPARIN 30 MG/0.3 ML SYR SC STA (13:04)
[2021-05-11] MEDS ORDERED: HYDROCODONE/APAP 5MG-325MG TAB PO PRN (19:45)
[2021-05-11] MEDS ORDERED: ACETAMINOPHEN 325 MG TAB PO PRN (19:45)
[2021-05-12] VITALS (8 sets, daily range): BP systolic 96–113; BP diastolic 37–62
[2021-05-12] MEDS: PIPERACILLIN/TAZOBACTAM 3.375 GM in SODIUM CHLORIDE 0.9% 50ML 50 ML IV SCH ×3 (05:05→21:21)
[2021-05-12] MEDS: INSULIN REGULAR, HUMAN 100 UNIT/1 ML SQ SCH ×4 (07:30→20:58)
[2021-05-12] MEDS ORDERED: ONDANSETRON HCL INJ 2MG/ML 2ML 2 MG/ML VIAL IV PRN (11:30)
[2021-05-12] MEDS ORDERED: POLYETHYLENE GLYCOL 3350 17 GM PACK PO PRN (11:30)
[2021-05-12] MEDS ORDERED: ACETAMINOPHEN 325 MG TAB PO PRN (11:30)
[2021-05-12] MEDS ORDERED: HYDRALAZINE HCL 20 MG/ML VIAL IV PRN (11:30)
[2021-05-12] MEDS: SODIUM CHLORIDE 0.9% 1000ML 1,000 ML IV SCH (11:41)
[2021-05-12] MEDS: DOCUSATE SODIUM 100 MG CAP PO SCH (16:15)
[2021-05-12] MEDS: FAMOTIDINE 20 MG TAB PO SCH (16:15)
[2021-05-12] MEDS ORDERED: SIMVASTATIN 20 MG TAB PO SCH (21:00)
[2021-05-12] MEDS: ATORVASTATIN 40 MG TAB PO SCH (21:21)
[2021-05-12] MEDS ORDERED: SODIUM CHLORIDE 0.9% 1000ML 1,000 ML IV SCH (23:55)
[2021-05-13] VITALS (13 sets, daily range): BP systolic 124–149; BP diastolic 57–68
[2021-05-13] MEDS: SODIUM CHLORIDE 0.9% 1000ML 1,000 ML IV SCH ×3 (00:55→14:10)
[2021-05-13] MEDS: PIPERACILLIN/TAZOBACTAM 3.375 GM in SODIUM CHLORIDE 0.9% 50ML 50 ML IV SCH ×3 (06:06→21:10)
[2021-05-13 06:16] LABS: BASOPHILS # (AUTO) 0.1 (0.0-0.1); EOSINOPHILS # (AUTO) 0.8 (0.0-0.4); EOSINOPHILS % 8.5 % (0.0-6.0); HEMATOCRIT 28.2 % (34.2-44.1); LYMPHOCYTES # (AUTO) 1.5 (1.0-3.2); LYMPHOCYTES % 15.6 % (18.0-39.1); MEAN CORPUSCULAR HEMOGLOBIN 30.8 pg (28-32); MEAN CORPUSCULAR HGB CONC 31.9 g/dL (31-35); MEAN CORPUSCULAR VOLUME 96.6 fL (81-99); MONOCYTES # (AUTO) 0.8 (0.2-0.8); MONOCYTES % 8.4 % (4.4-11.3); NEUTROPHILS # (AUTO) 6.1 (2.1-6.9); NEUTROPHILS % 66.2 % (38.7-80.0); PLATELET COUNT 186 x10e3/uL (140-360); RED BLOOD COUNT 2.92 x10e6/uL (3.6-5.1); RED CELL DISTRIBUTION WIDTH 12.7 % (11.7-14.4); RETICULOCYTE % 1.1 % (0.8-2.2)
[2021-05-13 06:28] LABS: PROTHROMBIN TIME 13.9 seconds (11.9-14.5)
[2021-05-13 06:29] LABS: PARTIAL THROMBOPLASTIN TIME 38.4 seconds (23.8-35.5)
[2021-05-13 06:45] LABS: ANION GAP 13.9 mmol/L (8-16); CALCIUM 8.3 mg/dL (8.4-10.2); CHOL/HDL RATIO 3.8 (3.0-3.6); CREATININE, SERUM 1.27 mg/dL (0.57-1.11); MAGNESIUM 1.9 MG/DL (1.3-2.1); PHOSPHORUS 3.3 MG/DL (2.3-4.7); POTASSIUM 3.9 mmol/L (3.5-5.1)
[2021-05-13 06:58] LABS: FERRITIN 83.95 ng/mL (4.63-204.00); THYROID STIMULATING HORMONE 4.146 uIU/mL (0.350-4.940)
[2021-05-13] MEDS: INSULIN REGULAR, HUMAN 100 UNIT/1 ML SQ SCH ×4 (07:30→21:09)
[2021-05-13] MEDS: FAMOTIDINE 20 MG TAB PO SCH ×2 (07:30→17:32)
[2021-05-13] MEDS: DOCUSATE SODIUM 100 MG CAP PO SCH ×2 (08:24→17:32)
[2021-05-13] MEDS: ASPIRIN 81 MG CHEW TAB PO SCH (09:00)
[2021-05-13] MEDS ORDERED: ONDANSETRON HCL 4 MG ORAL DISINTEGRATING TAB PO PRN (10:30)
[2021-05-13] MEDS ORDERED: MIDAZOLAM HCL 2 MG/2 ML VIAL ONE (10:30)
[2021-05-13] MEDS ORDERED: HEPARIN SOD/SOD CHLORIDE 2,000 ML ONE (10:31)
[2021-05-13] MEDS ORDERED: IOPAMIDOL 300MG/ML 100 ML INFUS..BTL IV ONE (10:31)
[2021-05-13] MEDS ORDERED: FENTANYL CITRATE/PF 100MCG/2 ML INJ ONE (10:31)
[2021-05-13] MEDS ORDERED: LIDOCAINE HCL 2% LOCAL 20 ML VIAL ONE (10:31)
[2021-05-13] MEDS ORDERED: SODIUM CHLORIDE 0.9% 1000ML 1,000 ML ONE ×2 (10:31→10:49)
[2021-05-13] MEDS ORDERED: VERAPAMIL HCL 2.5 MG/ML 2 ML VIAL ONE (10:49)
[2021-05-13] MEDS ORDERED: CLOPIDOGREL BISULFATE 75 MG TAB ONE (11:50)
[2021-05-13] MEDS ORDERED: ASPIRIN 325 MG TAB ONE (11:51)
[2021-05-13] MEDS ORDERED: Vancomycin IV 500 MG in SODIUM CHLORIDE 0.9% 100 ML IV SCH (15:00)
[2021-05-13] MEDS: Vancomycin IV 500 MG in SODIUM CHLORIDE 0.9% 100 ML IV SCH (17:32)
[2021-05-13] MEDS: ATORVASTATIN 40 MG TAB PO SCH (21:08)
[2021-05-14] VITALS (7 sets, daily range): BP systolic 98–118; BP diastolic 34–52
[2021-05-14] MEDS: SODIUM CHLORIDE 0.9% 1000ML 1,000 ML IV SCH ×2 (01:20→11:58)
[2021-05-14] MEDS: Vancomycin IV 500 MG in SODIUM CHLORIDE 0.9% 100 ML IV SCH ×2 (06:00→17:35)
[2021-05-14 06:08] LABS: BASOPHILS # (AUTO) 0.1 (0.0-0.1); BASOPHILS % 0.6 % (0.0-1.0); EOSINOPHILS # (AUTO) 0.5 (0.0-0.4); EOSINOPHILS % 5.7 % (0.0-6.0); HEMATOCRIT 26.5 % (34.2-44.1); HEMOGLOBIN 8.6 g/dL (12.0-16.0); LYMPHOCYTES # (AUTO) 0.9 (1.0-3.2); LYMPHOCYTES % 9.7 % (18.0-39.1); MEAN CORPUSCULAR HEMOGLOBIN 30.9 pg (28-32); MEAN CORPUSCULAR HGB CONC 32.5 g/dL (31-35); MEAN CORPUSCULAR VOLUME 95.3 fL (81-99); MONOCYTES # (AUTO) 0.8 (0.2-0.8); MONOCYTES % 8.4 % (4.4-11.3); NEUTROPHILS # (AUTO) 6.8 (2.1-6.9); NEUTROPHILS % 75.3 % (38.7-80.0); PLATELET COUNT 176 x10e3/uL (140-360); RED BLOOD COUNT 2.78 x10e6/uL (3.6-5.1); RED CELL DISTRIBUTION WIDTH 12.5 % (11.7-14.4)
[2021-05-14] MEDS: PIPERACILLIN/TAZOBACTAM 3.375 GM in SODIUM CHLORIDE 0.9% 50ML 50 ML IV SCH ×3 (06:11→21:44)
[2021-05-14 06:29] LABS: ANION GAP 14.7 mmol/L (8-16); CREATININE, SERUM 1.15 mg/dL (0.57-1.11); POTASSIUM 3.7 mmol/L (3.5-5.1)
[2021-05-14 06:54] LABS: CALCIUM 8.1 mg/dL (8.4-10.2)
[2021-05-14] MEDS: INSULIN REGULAR, HUMAN 100 UNIT/1 ML SQ SCH ×4 (07:30→21:43)
[2021-05-14] MEDS: FAMOTIDINE 20 MG TAB PO SCH ×2 (08:38→17:35)
[2021-05-14] MEDS: ASPIRIN 81 MG CHEW TAB PO SCH (08:38)
[2021-05-14] MEDS: DOCUSATE SODIUM 100 MG CAP PO SCH ×2 (08:38→17:35)
[2021-05-14] MEDS: CLOPIDOGREL BISULFATE 75 MG TAB PO SCH (08:39)
[2021-05-14] MEDS ORDERED: INSULIN REGULAR, HUMAN 100 UNIT/1 ML SQ ONE (21:30)
[2021-05-14] MEDS: ATORVASTATIN 40 MG TAB PO SCH (21:42)
[2021-05-15] VITALS (8 sets, daily range): BP systolic 100–131; BP diastolic 38–56
[2021-05-15] MEDS: SODIUM CHLORIDE 0.9% 1000ML 1,000 ML IV SCH ×2 (03:04→15:50)
[2021-05-15] MEDS: PIPERACILLIN/TAZOBACTAM 3.375 GM in SODIUM CHLORIDE 0.9% 50ML 50 ML IV SCH ×3 (06:00→21:24)
[2021-05-15 06:07] LABS: BASOPHILS # (AUTO) 0.1 (0.0-0.1); BASOPHILS % 0.7 % (0.0-1.0); EOSINOPHILS # (AUTO) 0.6 (0.0-0.4); EOSINOPHILS % 6.7 % (0.0-6.0); HEMATOCRIT 24.7 % (34.2-44.1); LYMPHOCYTES # (AUTO) 1.3 (1.0-3.2); LYMPHOCYTES % 13.8 % (18.0-39.1); MEAN CORPUSCULAR HEMOGLOBIN 30.8 pg (28-32); MEAN CORPUSCULAR HGB CONC 32.4 g/dL (31-35); MONOCYTES % 11.1 % (4.4-11.3); NEUTROPHILS # (AUTO) 6.2 (2.1-6.9); NEUTROPHILS % 67.3 % (38.7-80.0); PLATELET COUNT 165 x10e3/uL (140-360); RED CELL DISTRIBUTION WIDTH 12.8 % (11.7-14.4)
[2021-05-15 06:10] LABS: INR 1.06; PROTHROMBIN TIME 14.6 seconds (11.9-14.5)
[2021-05-15 06:19] LABS: ANION GAP 11.7 mmol/L (8-16); CALCIUM 7.8 mg/dL (8.4-10.2); CREATININE, SERUM 1.24 mg/dL (0.57-1.11); MAGNESIUM 1.9 MG/DL (1.3-2.1); PHOSPHORUS 2.4 MG/DL (2.3-4.7); POTASSIUM 3.7 mmol/L (3.5-5.1)
[2021-05-15] MEDS: Vancomycin IV 500 MG in SODIUM CHLORIDE 0.9% 100 ML IV SCH ×2 (07:30→17:03)
[2021-05-15] MEDS: FAMOTIDINE 20 MG TAB PO SCH ×2 (07:30→17:03)
[2021-05-15] MEDS: INSULIN REGULAR, HUMAN 100 UNIT/1 ML SQ SCH ×4 (07:30→21:23)
[2021-05-15] MEDS: DOCUSATE SODIUM 100 MG CAP PO SCH ×3 (09:00→17:03)
[2021-05-15] MEDS ORDERED: BUPIVACAINE HCL 0.5% INJ 30 ML VIAL INJ ONE (11:43)
[2021-05-15] MEDS ORDERED: SEVOFLURANE INHAL SOLN 250 ML PEN BTL ONE (13:05)
[2021-05-15] MEDS ORDERED: PROPOFOL IV EMULSION 10 MG/ML 20 ML VIAL ONE (13:05)
[2021-05-15] MEDS ORDERED: ONDANSETRON HCL INJ 2MG/ML 2ML 2 MG/ML VIAL ONE (13:05)
[2021-05-15] MEDS ORDERED: POVIDONE IODINE 0.05% 0.05 % ML PO ONE (13:05)
[2021-05-15] MEDS ORDERED: LIDOCAINE HCL 2% LOCAL INJ 5 ML SDV VIAL INJ ONE (13:05)
[2021-05-15] MEDS ORDERED: FENTANYL CITRATE/PF 100MCG/2 ML INJ ONE (13:40)
[2021-05-15] MEDS: ASPIRIN 81 MG CHEW TAB PO SCH (14:46)
[2021-05-15] MEDS: CLOPIDOGREL BISULFATE 75 MG TAB PO SCH (14:46)
[2021-05-15] MEDS: ATORVASTATIN 40 MG TAB PO SCH (21:24)
[2021-05-16 00:43] VITALS: BP 105/89
[2021-05-16 05:06] VITALS: BP 124/57
[2021-05-16 05:55] LABS: BASOPHILS # (AUTO) 0.1 (0.0-0.1); BASOPHILS % 0.5 % (0.0-1.0); EOSINOPHILS # (AUTO) 0.7 (0.0-0.4); EOSINOPHILS % 7.2 % (0.0-6.0); HEMATOCRIT 26.1 % (34.2-44.1); HEMOGLOBIN 8.2 g/dL (12.0-16.0); LYMPHOCYTES # (AUTO) 0.9 (1.0-3.2); LYMPHOCYTES % 10.2 % (18.0-39.1); MEAN CORPUSCULAR HEMOGLOBIN 30.9 pg (28-32); MEAN CORPUSCULAR HGB CONC 31.4 g/dL (31-35); MEAN CORPUSCULAR VOLUME 98.5 fL (81-99); MONOCYTES # (AUTO) 0.9 (0.2-0.8); MONOCYTES % 9.4 % (4.4-11.3); NEUTROPHILS # (AUTO) 6.6 (2.1-6.9); NEUTROPHILS % 72.2 % (38.7-80.0); PLATELET COUNT 162 x10e3/uL (140-360); RED BLOOD COUNT 2.65 x10e6/uL (3.6-5.1); RED CELL DISTRIBUTION WIDTH 12.8 % (11.7-14.4)
[2021-05-16 06:23] LABS: ALBUMIN 2.2 g/dL (3.5-5.0); ALBUMIN/GLOBULIN RATIO 0.6 (0.8-2.0); ANION GAP 11.7 mmol/L (8-16); CALCIUM 7.7 mg/dL (8.4-10.2); CREATININE, SERUM 1.17 mg/dL (0.57-1.11)
[2021-05-16 06:25] LABS: POTASSIUM 4.7 mmol/L (3.5-5.1)
[2021-05-16] MEDS: PIPERACILLIN/TAZOBACTAM 3.375 GM in SODIUM CHLORIDE 0.9% 50ML 50 ML IV SCH (06:29)
[2021-05-16] MEDS: SODIUM CHLORIDE 0.9% 1000ML 1,000 ML IV SCH (06:29)
[2021-05-16] MEDS: ASPIRIN 81 MG CHEW TAB PO SCH (09:52)
[2021-05-16] MEDS: DOCUSATE SODIUM 100 MG CAP PO SCH (09:52)
[2021-05-16] MEDS: CLOPIDOGREL BISULFATE 75 MG TAB PO SCH (09:53)
[2021-05-16] MEDS: INSULIN REGULAR, HUMAN 100 UNIT/1 ML SQ SCH (10:10)
[2021-05-16] MEDS: FAMOTIDINE 20 MG TAB PO SCH (10:29)
[2021-05-16] MEDS ORDERED: FEOSOL325 MG PO (12:21)
[2021-05-16] MEDS ORDERED: VIBRAMYCIN100 MG PO (12:22)
[2021-05-16 12:55] VITALS: BP 124/57
== END 2021-05-16 16:47 | disposition home health service (06) | DRG 271 ==
LOC: ER 19:47 → UNMERGE 23:25 → ERHOLD 23:25 → MERGE 23:25 → MED/SURG3 05-11 00:31
PROVIDERS: ADMIT Internal Medicine; ATTEND Internal Medicine
PROC: 047Q3Z1 Dilation of Left Anterior Tibial Artery using Drug-Coated Balloon, Percutaneous Approach (ICD-10-PCS; principal; 2021-05-13)
PROC: 04CL3ZZ Extirpation of Matter from Left Femoral Artery, Percutaneous Approach (ICD-10-PCS; 2021-05-13)
PROC: 047L341 Dilation of Left Femoral Artery with Drug-eluting Intraluminal Device, using Drug-Coated Balloon, Percutaneous Approach (ICD-10-PCS; 2021-05-13)
PROC: 047N3Z1 Dilation of Left Popliteal Artery using Drug-Coated Balloon, Percutaneous Approach (ICD-10-PCS; 2021-05-13)
PROC: 04CQ3ZZ Extirpation of Matter from Left Anterior Tibial Artery, Percutaneous Approach (ICD-10-PCS; 2021-05-13)
PROC: B4101ZZ Fluoroscopy of Abdominal Aorta using Low Osmolar Contrast (ICD-10-PCS; 2021-05-13)
PROC: B41F1ZZ Fluoroscopy of Right Lower Extremity Arteries using Low Osmolar Contrast (ICD-10-PCS; 2021-05-13)
PROC: B41G1ZZ Fluoroscopy of Left Lower Extremity Arteries using Low Osmolar Contrast (ICD-10-PCS; 2021-05-13)
PROC: 0Y6S0Z0 Detachment at Left 2nd Toe, Complete, Open Approach (ICD-10-PCS; 2021-05-15)
DX: E11.52 Type 2 diabetes mellitus with diabetic peripheral angiopathy with gangrene (principal); I96 Gangrene, not elsewhere classified; M86.8X7 Other osteomyelitis, ankle and foot; I70.262 Atherosclerosis of native arteries of extremities with gangrene, left leg; E11.69 Type 2 diabetes mellitus with other specified complication; L03.032 Cellulitis of left toe; Z83.3 Family history of diabetes mellitus; E78.5 Hyperlipidemia, unspecified; E11.22 Type 2 diabetes mellitus with diabetic chronic kidney disease; I12.9 Hypertensive chronic kidney disease with stage 1 through stage 4 chronic kidney disease, or unspecified chronic kidney disease; N18.9 Chronic kidney disease, unspecified; E11.621 Type 2 diabetes mellitus with foot ulcer; L97.529 Non-pressure chronic ulcer of other part of left foot with unspecified severity; Z79.84 Long term (current) use of oral hypoglycemic drugs; D63.8 Anemia in other chronic diseases classified elsewhere; H54.62 Unqualified visual loss, left eye, normal vision right eye; E11.628 Type 2 diabetes mellitus with other skin complications; L97.524 Non-pressure chronic ulcer of other part of left foot with necrosis of bone; Z20.822 Contact with and (suspected) exposure to COVID-19
CPT/HCPCS: 36247; 36415; 37224; 37227; 37228; 37229; 75625; 75716; 80048; 80053; 80061; 80202; 82270; 82607; 82728; 82746; 82948; 83036; 83540; 83605; 83735; 84100; 84443; 84466; 85025; 85045; 85610; 85730; 87040; 87071; 87075; 87186; 87205; 88304; 88305; 88311; 93005; 93925; 94799; 96372; 97139; 99152; 99153; 99284; C1724; C1725; C1760; C1769; C1887; J1650; J1817; J2001; J2250; J2405; J2543; J3010; J3370; J7030; J7050; Q9967; U0002

== ENCOUNTER 2022-05-13 18:45 | Inpatient (IN) | payer MEDICARE ==
[~2022-05-13] VITALS: Ht 157.5 cm; Wt 52.2 kg
[~2022-05-13 18:45] MED LIST changes: +ALENDRONATE SOD70 MG PO; +ASPIRIN81 MG PO; +CLOPIDOGREL75 MG PO; +CRESTOR10 MG PO; +FEOSOL325 MG PO; +GLIPIZIDE5 MG PO; +METFORMIN HCL500 M1 PO; +VIBRAMYCIN100 MG PO
[2022-05-13] MEDS ORDERED: Morphine 4mg INJECTION 4 MG/ML INJ IV PRN (19:15)
[2022-05-13] MEDS ORDERED: ONDANSETRON HCL INJ 2MG/ML 2ML 2 MG/ML VIAL IV PRN (19:15)
[2022-05-13] MEDS ORDERED: ONDANSETRON HCL INJ 2MG/ML 2ML 2 MG/ML VIAL ONE (19:17)
[2022-05-13] MEDS ORDERED: FENTANYL CITRATE/PF 100MCG/2 ML INJ ONE (19:18)
[2022-05-13] MEDS ORDERED: FENTANYL CITRATE/PF 100MCG/2 ML INJ IV ONE (19:30)
[2022-05-13 19:32] LABS: BASOPHILS # (AUTO) 0.1 (0.0-0.1); BASOPHILS % 0.7 % (0.0-1.0); EOSINOPHILS # (AUTO) 0.3 (0.0-0.4); EOSINOPHILS % 3.4 % (0.0-6.0); HEMATOCRIT 31.6 % (34.2-44.1); HEMOGLOBIN 9.5 g/dL (12.0-16.0); LYMPHOCYTES # (AUTO) 1.1 (1.0-3.2); LYMPHOCYTES % 11.2 % (18.0-39.1); MEAN CORPUSCULAR HEMOGLOBIN 30.3 pg (28-32); MEAN CORPUSCULAR HGB CONC 30.1 g/dL (31-35); MEAN CORPUSCULAR VOLUME 100.6 fL (81-99); MONOCYTES # (AUTO) 0.6 (0.2-0.8); MONOCYTES % 6.7 % (4.4-11.3); NEUTROPHILS # (AUTO) 7.5 (2.1-6.9); NEUTROPHILS % 77.6 % (38.7-80.0); PLATELET COUNT 316 x10e3/uL (140-360); RED BLOOD COUNT 3.14 x10e6/uL (3.6-5.1); RED CELL DISTRIBUTION WIDTH 11.9 % (11.7-14.4)
[2022-05-13 19:48] LABS: ALBUMIN 3.1 g/dL (3.5-5.0); ALBUMIN/GLOBULIN RATIO 0.7 (0.8-2.0); CREATININE, SERUM 1.18 mg/dL (0.57-1.11)
[2022-05-13 21:30] VITALS: BP 146/69
[2022-05-13] MEDS ORDERED: JANUVIA50 MG PO (22:28)
[2022-05-13] MEDS ORDERED: LUMIGAN2.5 M1 OS (22:28)
[2022-05-14] VITALS (8 sets, daily range): BP systolic 99–127; BP diastolic 43–57
[2022-05-14] MEDS ORDERED: ONDANSETRON HCL INJ 2MG/ML 2ML 2 MG/ML VIAL IV PRN (00:30)
[2022-05-14] MEDS ORDERED: Morphine 4mg INJECTION 4 MG/ML INJ IV PRN (00:30)
[2022-05-14] MEDS ORDERED: CLONIDINE HCL 0.1 MG TAB PO PRN (10:45)
[2022-05-14] MEDS ORDERED: ACETAMINOPHEN 325 MG TAB PO PRN (10:45)
[2022-05-14] MEDS ORDERED: DEXTROSE 50% SYRINGE 50 ML IV PRN (10:45)
[2022-05-14] MEDS: INSULIN REGULAR, HUMAN 100 UNIT/1 ML SQ SCH ×3 (11:30→20:40)
[2022-05-14] MEDS ORDERED: SODIUM CHLORIDE 0.9% 250ML 250 ML ONE (17:22)
[2022-05-14] MEDS: BIMATOPROST(OPTH) 2.5 ML BOTTLE OP SCH (20:38)
[2022-05-15] VITALS (9 sets, daily range): BP systolic 109–140; BP diastolic 45–57
[2022-05-15] MEDS: SITAGLIPTIN 100 MG TAB PO SCH (08:43)
[2022-05-15] MEDS: ASPIRIN 81 MG CHEW TAB PO SCH (08:43)
[2022-05-15] MEDS: GLIPIZIDE 5 MG TAB PO SCH (08:44)
[2022-05-15] MEDS: INSULIN REGULAR, HUMAN 100 UNIT/1 ML SQ SCH ×4 (08:46→21:34)
[2022-05-15] MEDS ORDERED: SODIUM CHLORIDE 0.9% 250ML 250 ML ONE (11:47)
[2022-05-15] MEDS ORDERED: ONDANSETRON HCL 4 MG ORAL DISINTEGRATING TAB PO PRN (13:30)
[2022-05-15] MEDS: INSULIN GLARGINE 100 UNITS/ML VIAL SQ SCH (21:43)
[2022-05-15] MEDS: BIMATOPROST(OPTH) 2.5 ML BOTTLE OP SCH (21:43)
[2022-05-16] VITALS (30 sets, daily range): BP systolic 71–165; BP diastolic 40–127
[2022-05-16 05:49] LABS: BASOPHILS # (AUTO) 0.1 (0.0-0.1); EOSINOPHILS # (AUTO) 0.4 (0.0-0.4); EOSINOPHILS % 5.8 % (0.0-6.0); HEMATOCRIT 27.1 % (34.2-44.1); HEMOGLOBIN 8.2 g/dL (12.0-16.0); LYMPHOCYTES % 14.6 % (18.0-39.1); MEAN CORPUSCULAR HEMOGLOBIN 30.4 pg (28-32); MEAN CORPUSCULAR HGB CONC 30.3 g/dL (31-35); MEAN CORPUSCULAR VOLUME 100.4 fL (81-99); MONOCYTES # (AUTO) 0.6 (0.2-0.8); MONOCYTES % 8.2 % (4.4-11.3); NEUTROPHILS # (AUTO) 4.9 (2.1-6.9); PLATELET COUNT 286 x10e3/uL (140-360); RED CELL DISTRIBUTION WIDTH 11.9 % (11.7-14.4)
[2022-05-16 06:20] LABS: ANION GAP 9.9 mmol/L (8-16); CALCIUM 8.1 mg/dL (8.4-10.2); CREATININE, SERUM 1.46 mg/dL (0.57-1.11); POTASSIUM 3.9 mmol/L (3.5-5.1)
[2022-05-16] MEDS: GLIPIZIDE 5 MG TAB PO SCH (08:51)
[2022-05-16] MEDS: CLOPIDOGREL BISULFATE 75 MG TAB PO SCH (08:51)
[2022-05-16] MEDS: ASPIRIN 81 MG CHEW TAB PO SCH (08:51)
[2022-05-16] MEDS: SITAGLIPTIN 100 MG TAB PO SCH (08:52)
[2022-05-16] MEDS: INSULIN REGULAR, HUMAN 100 UNIT/1 ML SQ SCH ×4 (08:58→21:00)
[2022-05-16] MEDS: SODIUM CHLORIDE 0.9% 1000ML 1,000 ML IV SCH ×2 (14:15→23:13)
[2022-05-16] MEDS ORDERED: SODIUM CHLORIDE 0.9% 1000ML 0 ML ONE (15:09)
[2022-05-16] MEDS ORDERED: LIDOCAINE HCL 2% LOCAL 20 ML VIAL ONE (15:09)
[2022-05-16] MEDS ORDERED: HEPARIN SOD (PORCINE) 1000 UNIT/ML 30ML ONE (15:09)
[2022-05-16] MEDS ORDERED: HEPARIN SOD/SOD CHLORIDE 2,000 ML ONE (15:09)
[2022-05-16] MEDS ORDERED: NITROGLYCERIN/D5W 200 MCG/ML 250 ML ONE (15:09)
[2022-05-16] MEDS ORDERED: IOPAMIDOL 300MG/ML 50ML INFUS..BTL IV ONE (15:19)
[2022-05-16] MEDS ORDERED: MIDAZOLAM HCL 2 MG/2 ML VIAL ONE (15:35)
[2022-05-16] MEDS ORDERED: FENTANYL CITRATE/PF 100MCG/2 ML INJ ONE (15:35)
[2022-05-16] MEDS ORDERED: VERAPAMIL HCL 2.5 MG/ML 2 ML VIAL ONE (15:42)
[2022-05-16] MEDS ORDERED: SODIUM CHLORIDE 0.9% 1000ML 1,000 ML ONE (15:42)
[2022-05-16] MEDS ORDERED: CLOPIDOGREL BISULFATE 75 MG TAB ONE (17:20)
[2022-05-16] MEDS ORDERED: ASPIRIN 325 MG TAB ONE (17:21)
[2022-05-16] MEDS: ATORVASTATIN 40 MG TAB PO SCH (23:13)
[2022-05-16] MEDS: INSULIN GLARGINE 100 UNITS/ML VIAL SQ SCH (23:23)
[2022-05-16] MEDS: BENZONATATE 100 MG CAP PO PRN (23:23)
[2022-05-17] VITALS (25 sets, daily range): BP systolic 93–144; BP diastolic 40–97
[2022-05-17] MEDS: SODIUM CHLORIDE 0.9% 1000ML 1,000 ML IV SCH ×2 (05:44→14:00)
[2022-05-17 07:25] LABS: BASOPHILS # (AUTO) 0.1 (0.0-0.1); BASOPHILS % 0.7 % (0.0-1.0); EOSINOPHILS # (AUTO) 0.4 (0.0-0.4); EOSINOPHILS % 5.1 % (0.0-6.0); HEMATOCRIT 28.7 % (34.2-44.1); HEMOGLOBIN 8.8 g/dL (12.0-16.0); LYMPHOCYTES # (AUTO) 0.7 (1.0-3.2); LYMPHOCYTES % 8.2 % (18.0-39.1); MEAN CORPUSCULAR HEMOGLOBIN 30.9 pg (28-32); MEAN CORPUSCULAR HGB CONC 30.7 g/dL (31-35); MEAN CORPUSCULAR VOLUME 100.7 fL (81-99); MONOCYTES # (AUTO) 0.4 (0.2-0.8); MONOCYTES % 5.3 % (4.4-11.3); NEUTROPHILS # (AUTO) 6.7 (2.1-6.9); NEUTROPHILS % 80.3 % (38.7-80.0); PLATELET COUNT 313 x10e3/uL (140-360); RED BLOOD COUNT 2.85 x10e6/uL (3.6-5.1); RED CELL DISTRIBUTION WIDTH 11.6 % (11.7-14.4)
[2022-05-17 07:52] LABS: ALBUMIN 2.3 g/dL (3.5-5.0); ALBUMIN/GLOBULIN RATIO 0.7 (0.8-2.0); ANION GAP 9.8 mmol/L (8-16); CALCIUM 7.8 mg/dL (8.4-10.2); CREATININE, SERUM 1.03 mg/dL (0.57-1.11); POTASSIUM 3.8 mmol/L (3.5-5.1)
[2022-05-17] MEDS: ASPIRIN 81 MG CHEW TAB PO SCH (08:01)
[2022-05-17] MEDS: GLIPIZIDE 5 MG TAB PO SCH (08:01)
[2022-05-17] MEDS: CLOPIDOGREL BISULFATE 75 MG TAB PO SCH (08:02)
[2022-05-17] MEDS: SITAGLIPTIN 100 MG TAB PO SCH (08:02)
[2022-05-17] MEDS: INSULIN REGULAR, HUMAN 100 UNIT/1 ML SQ SCH ×4 (08:03→20:22)
[2022-05-17] MEDS: ATORVASTATIN 40 MG TAB PO SCH (20:19)
[2022-05-17] MEDS: BENZONATATE 100 MG CAP PO PRN (20:19)
[2022-05-17] MEDS: BIMATOPROST(OPTH) 2.5 ML BOTTLE OP SCH ×2 (20:20→20:23)
[2022-05-17] MEDS: INSULIN GLARGINE 100 UNITS/ML VIAL SQ SCH (20:22)
[2022-05-18] VITALS (13 sets, daily range): BP systolic 100–155; BP diastolic 39–66
[2022-05-18] MEDS: SODIUM CHLORIDE 0.9% 1000ML 1,000 ML IV SCH (00:18)
[2022-05-18] MEDS: CLOPIDOGREL BISULFATE 75 MG TAB PO SCH (08:09)
[2022-05-18] MEDS: GLIPIZIDE 5 MG TAB PO SCH (08:09)
[2022-05-18] MEDS: SITAGLIPTIN 100 MG TAB PO SCH (08:09)
[2022-05-18] MEDS: ASPIRIN 81 MG CHEW TAB PO SCH (08:10)
[2022-05-18] MEDS: CEFTRIAXONE 2 GM in SODIUM CHLORIDE 0.9% 100 ML IV SCH (08:10)
[2022-05-18] MEDS: INSULIN REGULAR, HUMAN 100 UNIT/1 ML SQ SCH ×4 (08:11→21:02)
[2022-05-18] MEDS: ATORVASTATIN 40 MG TAB PO SCH (20:46)
[2022-05-18] MEDS: BIMATOPROST(OPTH) 2.5 ML BOTTLE OP SCH (20:46)
[2022-05-18] MEDS: INSULIN GLARGINE 100 UNITS/ML VIAL SQ SCH (21:02)
[2022-05-19] VITALS (7 sets, daily range): BP systolic 104–132; BP diastolic 47–72
[2022-05-19 04:45] LABS: BASOPHILS # (AUTO) 0.1 (0.0-0.1); BASOPHILS % 0.8 % (0.0-1.0); EOSINOPHILS # (AUTO) 0.5 (0.0-0.4); EOSINOPHILS % 5.5 % (0.0-6.0); HEMATOCRIT 25.6 % (34.2-44.1); HEMOGLOBIN 8.3 g/dL (12.0-16.0); LYMPHOCYTES # (AUTO) 1.1 (1.0-3.2); LYMPHOCYTES % 12.7 % (18.0-39.1); MEAN CORPUSCULAR HEMOGLOBIN 30.3 pg (28-32); MEAN CORPUSCULAR HGB CONC 32.4 g/dL (31-35); MONOCYTES # (AUTO) 0.9 (0.2-0.8); MONOCYTES % 10.1 % (4.4-11.3); NEUTROPHILS # (AUTO) 6.3 (2.1-6.9); NEUTROPHILS % 70.2 % (38.7-80.0); PLATELET COUNT 279 x10e3/uL (140-360); RED BLOOD COUNT 2.74 x10e6/uL (3.6-5.1); RED CELL DISTRIBUTION WIDTH 12.5 % (11.7-14.4)
[2022-05-19 04:48] LABS: MEAN CORPUSCULAR VOLUME 93.4 fL (81-99)
[2022-05-19 05:07] LABS: ANION GAP 12.1 mmol/L (8-16); CALCIUM 7.6 mg/dL (8.4-10.2); CREATININE, SERUM 1.05 mg/dL (0.57-1.11); POTASSIUM 3.1 mmol/L (3.5-5.1)
[2022-05-19] MEDS ORDERED: ALENDRONATE SODIUM 70 MG TAB PO SCH (06:30)
[2022-05-19] MEDS: INSULIN REGULAR, HUMAN 100 UNIT/1 ML SQ SCH ×4 (07:30→21:46)
[2022-05-19] MEDS ORDERED: POTASSIUM CHLORIDE 10MEQ EA PO ONE (08:45)
[2022-05-19] MEDS: SITAGLIPTIN 100 MG TAB PO SCH (08:57)
[2022-05-19] MEDS: GLIPIZIDE 5 MG TAB PO SCH (08:57)
[2022-05-19] MEDS: ASPIRIN 81 MG CHEW TAB PO SCH (08:57)
[2022-05-19] MEDS: CLOPIDOGREL BISULFATE 75 MG TAB PO SCH (08:57)
[2022-05-19] MEDS: CEFTRIAXONE 2 GM in SODIUM CHLORIDE 0.9% 100 ML IV SCH (08:58)
[2022-05-19] MEDS ORDERED: SODIUM CHLORIDE 0.9% 250ML 250 ML ONE (09:23)
[2022-05-19] MEDS: BIMATOPROST(OPTH) 2.5 ML BOTTLE OP SCH (21:39)
[2022-05-19] MEDS: ATORVASTATIN 40 MG TAB PO SCH (21:44)
[2022-05-19] MEDS: INSULIN GLARGINE 100 UNITS/ML VIAL SQ SCH (21:47)
[2022-05-20] VITALS: BP 113/48
[2022-05-20 04:00] VITALS: BP 121/52
[2022-05-20] MEDS: INSULIN REGULAR, HUMAN 100 UNIT/1 ML SQ SCH (07:30)
[2022-05-20 08:30] VITALS: BP 128/49
[2022-05-20 09:00] VITALS: BP 128/49
[2022-05-20] MEDS: SITAGLIPTIN 100 MG TAB PO SCH (10:19)
[2022-05-20] MEDS: ASPIRIN 81 MG CHEW TAB PO SCH (10:19)
[2022-05-20] MEDS: CLOPIDOGREL BISULFATE 75 MG TAB PO SCH (10:19)
[2022-05-20] MEDS: GLIPIZIDE 5 MG TAB PO SCH (10:19)
[2022-05-20] MEDS: CEFTRIAXONE 2 GM in SODIUM CHLORIDE 0.9% 100 ML IV SCH (10:19)
== END 2022-05-20 10:45 | disposition home or self-care (01) | DRG 253 ==
LOC: ER 18:51 → MED/SURG3 19:10 → ER 21:15 → ICU 05-16 22:26 → MED/SURG 05-18 18:31
PROVIDERS: ADMIT Internal Medicine; ATTEND Internal Medicine
PROC: 047L3Z1 Dilation of Left Femoral Artery using Drug-Coated Balloon, Percutaneous Approach (ICD-10-PCS; principal; 2022-05-16)
PROC: 047N3ZZ Dilation of Left Popliteal Artery, Percutaneous Approach (ICD-10-PCS; 2022-05-16)
PROC: B41G1ZZ Fluoroscopy of Left Lower Extremity Arteries using Low Osmolar Contrast (ICD-10-PCS; 2022-05-16)
PROC: B41F1ZZ Fluoroscopy of Right Lower Extremity Arteries using Low Osmolar Contrast (ICD-10-PCS; 2022-05-16)
DX: E11.52 Type 2 diabetes mellitus with diabetic peripheral angiopathy with gangrene (principal); I96 Gangrene, not elsewhere classified; M86.9 Osteomyelitis, unspecified; L03.116 Cellulitis of left lower limb; E11.621 Type 2 diabetes mellitus with foot ulcer; L97.523 Non-pressure chronic ulcer of other part of left foot with necrosis of muscle; E11.22 Type 2 diabetes mellitus with diabetic chronic kidney disease; D63.1 Anemia in chronic kidney disease; N18.9 Chronic kidney disease, unspecified; H54.62 Unqualified visual loss, left eye, normal vision right eye; R53.81 Other malaise; I12.9 Hypertensive chronic kidney disease with stage 1 through stage 4 chronic kidney disease, or unspecified chronic kidney disease; E11.51 Type 2 diabetes mellitus with diabetic peripheral angiopathy without gangrene; E11.42 Type 2 diabetes mellitus with diabetic polyneuropathy; Z79.02 Long term (current) use of antithrombotics/antiplatelets; Z79.2 Long term (current) use of antibiotics; Z79.82 Long term (current) use of aspirin; Z79.4 Long term (current) use of insulin; Z79.899 Other long term (current) drug therapy; Z89.422 Acquired absence of other left toe(s); Z98.890 Other specified postprocedural states; Z83.3 Family history of diabetes mellitus
CPT/HCPCS: 36415; 37224; 37228; 75625; 75716; 80048; 80053; 82948; 83036; 83605; 84443; 85025; 87040; 93306; 93925; 99152; 99153; 99252; 99284; C1725; C1769; C1887; C1894; C2623; J0696; J1644; J1815; J1817; J2001; J2250; J2405; J2543; J3010; J7030; J7050

== ENCOUNTER → 2023-01-26 | Day surgery (SDC) | payer MEDICARE ==
[2023-01-21 11:47] LABS: BASOPHILS # (AUTO) 0.1 (0.0-0.1); BASOPHILS % 0.5 % (0.0-1.0); EOSINOPHILS # (AUTO) 0.7 (0.0-0.4); EOSINOPHILS % 6.9 % (0.0-6.0); HEMOGLOBIN 10.1 g/dL (12.0-16.0); LYMPHOCYTES # (AUTO) 1.1 (1.0-3.2); LYMPHOCYTES % 11.6 % (18.0-39.1); MEAN CORPUSCULAR HEMOGLOBIN 30.9 pg (28-32); MEAN CORPUSCULAR HGB CONC 33.7 g/dL (31-35); MEAN CORPUSCULAR VOLUME 91.7 fL (81-99); MONOCYTES # (AUTO) 0.8 (0.2-0.8); MONOCYTES % 8.1 % (4.4-11.3); NEUTROPHILS # (AUTO) 6.8 (2.1-6.9); NEUTROPHILS % 72.6 % (38.7-80.0); PLATELET COUNT 308 x10e3/uL (140-360); RED BLOOD COUNT 3.27 x10e6/uL (3.6-5.1); RED CELL DISTRIBUTION WIDTH 12.6 % (11.7-14.4); WHITE BLOOD COUNT 9.36 x10e3/uL (4.8-10.8)
[2023-01-21 11:58] LABS: ANION GAP 13.1 mmol/L (8-16); CREATININE, SERUM 1.51 mg/dL (0.57-1.11); POTASSIUM 4.1 mmol/L (3.5-5.1)
[~2023-01-26] MED LIST changes: +BUPIVACAINE HCL 0.5% INJ 30 ML VIAL INJ ONE; +CARVEDILOL3.125 MG PO; +DEXAMETHASONE SOD PHOS INJ 4 MG/ML SDV ONE; +FENTANYL CITRATE/PF 100MCG/2 ML INJ ONE; +JANUVIA50 MG PO; +LACTATED RINGER'S 1,000 ML ONE; +LISINOPRIL-HCT1 EAC2 PO; +LISINOPRIL10 MG PO; +LUMIGAN2.5 M1 OS; +SOLIQUA 100 UNIT3 ML SC
[2023-01-26 13:24] VITALS: BP 130/53; PULSE 106; RESP 18; O2SAT 99
== END | disposition home or self-care (01) ==
LOC: OR 09:59
PROVIDERS: ATTEND Podiatrist Foot & Ankle Surgery
DX: M86.172 Other acute osteomyelitis, left ankle and foot (principal); E11.51 Type 2 diabetes mellitus with diabetic peripheral angiopathy without gangrene; L97.526 Non-pressure chronic ulcer of other part of left foot with bone involvement without evidence of necrosis; I70.245 Atherosclerosis of native arteries of left leg with ulceration of other part of foot; Z95.820 Peripheral vascular angioplasty status with implants and grafts; Z79.84 Long term (current) use of oral hypoglycemic drugs; I10 Essential (primary) hypertension; E78.5 Hyperlipidemia, unspecified; I65.23 Occlusion and stenosis of bilateral carotid arteries; I70.1 Atherosclerosis of renal artery; Z01.810 Encounter for preprocedural cardiovascular examination; Z01.812 Encounter for preprocedural laboratory examination; Z01.818 Encounter for other preprocedural examination; Z89.422 Acquired absence of other left toe(s); Z89.421 Acquired absence of other right toe(s); Z79.02 Long term (current) use of antithrombotics/antiplatelets; Z79.82 Long term (current) use of aspirin; Z79.899 Other long term (current) drug therapy
CPT/HCPCS: 28820; 36415 ×2; 71046; 80048; 82948; 85025; 88305; 88311; 93005; J0690; J1100; J3010; J7121; 88304